=== PATIENT | female | born 1960 | race Caucasian/White ===

== ENCOUNTER 2017-06-11 13:14 | Inpatient (IN) ==
--- NOTE | 2017-06-11 13:35 | Emergency Department Note ---
Disposition Clinical Impression: Suicidal ideation Disposition: Admitted As Inpatient Condition: Good Referrals: NONE,PCP [Primary Care Provider] - Forms: ED Satisfaction Letter Psych HPI - General Chief Complaint: ED Psychiatric Symptoms Stated Complaint: SI Time Seen by Provider: 06/11/17 13:27 Source: patient Mode of arrival: ambulatory Limitations: no limitations Nursing Notes Reviewed: Yes Vital Signs Reviewed: Yes - History of Present Illness HPI Narrative: Patient presents to the ED with the chief complaint of suicidal ideation. Patient reports feelings of depression over the last year. No specific inciting incident. States she was sent here by her primary care physician today. She states it has been worse over the last 2 days. In about 48 hours ago. She actually tried to kill herself. She states that she has been thinking for a while about going into her garage, starting the car, and feeling herself from carbon monoxide poisoning. She states that she did this the day before yesterday, but she woke up in the morning and was still alive. She denies any ingestions. She states that she is still thinking about killing herself currently. Also complaining of weight gain over the last year and thinks she may have something wrong with her thyroid. She has COPD. No increased shortness of breath from baseline. No chest pain or fevers. No abdominal pain, nausea, vomiting or diarrhea. - Related Data Home Medications Medication Instructions Recorded Confirmed Hyoscyamine SL [Levsin SL] 0.125 mg SL QID PRN 06/11/17 06/11/17 Levothyroxine [Synthroid] 100 mcg PO DAILY 06/11/17 06/11/17 Allergies Allergy/AdvReac Type Severity Reaction Status Date / Time No Known Allergies Allergy Verified 06/11/17 14:04 Review of Systems: As reviewed in the HPI. All other systems reviewed are negative or normal. Past Medical History - Past Medical History Attestation: Yes The following information was validated with the patient. Source: patient Medical history: Reports: no medical history - Social History Smoking Status: Never smoker Physical Exam CONSTITUTIONAL: [well appearing in no acute distress] SKIN: [Warm, dry, and intact without rash] EYES: [extraocular movements are grossly intact, clear conjunctiva] HENT: [Normocephalic, atraumatic, moist mucus membranes] NECK: [no obvious swelling, normal range of motion] PULMONARY: [normal chest rise and fall, no respiratory distress or stridor CARDIOVASCULAR: [regular rate, distal extremities are warm and well perfused] GASTROINSTESTINAL: [nondistended, non-tender] GENITOURINARY: [deferred] NEUROLOGIC: [normal speech, moves all extremities] MUSCULOSKELETAL: [no gross deformities, atraumatic] PSYCHIATRIC: Flat affect, depressed, slightly withdrawn - General Limitations: no limitations General appearance: alert, in no apparent distress Course Course Narrative: Patient presenting with suicidal ideation and recent suicide attempt. I am concerned about the patient's lethality. Labs, EKG, chest x-ray, TSH. Patient will likely be admitted once Ia evaluates her. - Reevaluation(s) Reevaluation #1: 1A will admit Time: 19:58 Vital Signs Temperature 97.9 F 06/11/17 13:24 Pulse Rate 113 06/11/17 13:24 Respiratory Rate 18 06/11/17 13:24 Blood Pressure 162/78 06/11/17 13:24 O2 Sat by Pulse Oximetry 98 06/11/17 13:24 Temperature 97.9 F 06/11/17 13:24 Pulse Rate 113 06/11/17 13:24 Respiratory Rate 18 06/11/17 13:24 Blood Pressure 162/78 06/11/17 13:24 O2 Sat by Pulse Oximetry 98 06/11/17 13:24 Oxygen Delivery Oxygen Delivery Room Air Psych - Lab Data Result diagrams: 06/11/17 14:50 06/11/17 14:50 Lab Results 06/11/17 06/11/17 06/11/17 Range/Units 13:55 13:55 14:50 WBC 8.2 (4.3-11.1) K/mcL RBC 4.12 (3.82-4.97) M/mcL Hgb 14.0 (11.5-15.4) g/dL Hct 38.9 (35.3-44.9) % MCV 94.4 (83.0-100.0) fL MCH 34.0 H (28.0-33.3) pg MCHC 36.0 H (31.6-35.5) g/dL RDW 12.3 (11.5-14.5) % Plt Count 239 (140-400) K/mcL MPV 9.1 L (9.4-12.4) fL Immature Gran % 0.2 (0-4) % Seg Neutrophils % 70.9 % Lymphocytes % 21.7 % Monocytes % 5.9 % Eosinophils % 0.6 % Basophils % 0.7 % Neutrophils # 5.8 (1.6-8.9) K/mcL Lymphocytes # 1.8 (0.6-4.6) K/mcL Monocytes # 0.5 (0.0-1.3) K/mcL Eosinophils # 0.1 (0.0-0.6) K/mcL Basophils # 0.1 (0.0-0.2) K/mcL Sodium (136-145) mEq/L Potassium (3.5-5.1) mEq/L Chloride (98-107) mEq/L Carbon Dioxide (23-29) mEq/L BUN (6-20) mg/dL Creatinine (0.60-1.20) mg/dL Est GFR ( Amer) (> 60) Est GFR (Non-Af Amer) (> 60) BUN/Creatinine Ratio (6-26) Glucose (70-105) mg/dL Calculated Osmolality (280-300) Calcium (8.6-10.3) mg/dL TSH (0.340-5.600) mcIU/mL Urine Color Yellow (Yellow) Urine Clarity Cloudy A (Clear) Urine pH 5.5 (5.0-8.0) pH Units Ur Specific [place] 1.018 (1.010-1.025) Urine Protein Negative (Neg-Trace) mg/dL Urine Glucose (UA) Normal (Normal) mg/dL Urine Ketones Negative (Negative) mg/dL Urine Blood Negative (Negative) Urine Nitrite Negative (Negative) Urine Bilirubin Negative (Negative) Urine Urobilinogen Normal (Normal) mg/dL Ur Leukocyte Esterase Small H (Negative) Urine Microscopic RBC 0-3 (0-3) per hpf Urine Microscopic WBC 5-15 H (0-3) per hpf Ur Squamous Epith Cells Many H (None-Few) per lpf Urine Bacteria Few (None-Few) per hpf Hyaline Casts None Seen (None-Few) per lpf Salicylates (15.0-30.0) mg/dL Urine Opiates Screen Negative (Hsoues=749) ng/mL Acetaminophen (10-20) mcg/mL Ur Barbiturates Screen Negative (Zwamcv=638) ng/mL Ur Phencyclidine Scrn Negative (Cutoff=25) ng/mL Ur Amphetamines Screen Negative (Liursy=5771) ng/mL U Benzodiazepines Scrn Negative (Ntlers=763) ng/mL Urine Cocaine Screen Negative (Cutoff= 300) ng/mL U Marijuana (THC) Screen Negative (Cutoff = 50) ng/mL Ethyl Alcohol (Less than 10) mg/dL 06/11/17 Range/Units 14:50 WBC (4.3-11.1) K/mcL RBC (3.82-4.97) M/mcL Hgb (11.5-15.4) g/dL Hct (35.3-44.9) % MCV (83.0-100.0) fL MCH (28.0-33.3) pg MCHC (31.6-35.5) g/dL RDW (11.5-14.5) % Plt Count (140-400) K/mcL MPV (9.4-12.4) fL Immature Gran % (0-4) % Seg Neutrophils % % Lymphocytes % % Monocytes % % Eosinophils % % Basophils % % Neutrophils # (1.6-8.9) K/mcL Lymphocytes # (0.6-4.6) K/mcL Monocytes # (0.0-1.3) K/mcL Eosinophils # (0.0-0.6) K/mcL Basophils # (0.0-0.2) K/mcL Sodium 136 (136-145) mEq/L Potassium 4.6 (3.5-5.1) mEq/L Chloride 102 (98-107) mEq/L Carbon Dioxide 25 (23-29) mEq/L BUN 7 (6-20) mg/dL Creatinine 0.88 (0.60-1.20) mg/dL Est GFR ( Amer) > 60 (> 60) Est GFR (Non-Af Amer) > 60 (> 60) BUN/Creatinine Ratio 8 (6-26) Glucose 109 H (70-105) mg/dL Calculated Osmolality 281 (280-300) Calcium 9.6 (8.6-10.3) mg/dL TSH 6.908 H (0.340-5.600) mcIU/mL Urine Color (Yellow) Urine Clarity (Clear) Urine pH (5.0-8.0) pH Units Ur Specific [place] (1.010-1.025) Urine Protein (Neg-Trace) mg/dL Urine Glucose (UA) (Normal) mg/dL Urine Ketones (Negative) mg/dL Urine Blood (Negative) Urine Nitrite (Negative) Urine Bilirubin (Negative) Urine Urobilinogen (Normal) mg/dL Ur Leukocyte Esterase (Negative) Urine Microscopic RBC (0-3) per hpf Urine Microscopic WBC (0-3) per hpf Ur Squamous Epith Cells (None-Few) per lpf Urine Bacteria (None-Few) per hpf Hyaline Casts (None-Few) per lpf Salicylates < 2.5 L (15.0-30.0) mg/dL Urine Opiates Screen (Bzuwcw=523) ng/mL Acetaminophen < 10 L (10-20) mcg/mL Ur Barbiturates Screen (Fvnqrk=546) ng/mL Ur Phencyclidine Scrn (Cutoff=25) ng/mL Ur Amphetamines Screen (Xcvquo=7850) ng/mL U Benzodiazepines Scrn (Ejiqyi=479) ng/mL Urine Cocaine Screen (Cutoff= 300) ng/mL U Marijuana (THC) Screen (Cutoff = 50) ng/mL Ethyl Alcohol < 10 (Less than 10) mg/dL - EKG Data EKG attestation: Yes I reviewed and interpreted this EKG. EKG results narrative: Sinus rhythm, rate 93,. 1:30, QRS 76, QTC 412, normal axis, nonspecific ST depression in V4 and V5, no acute ischemic changes Psychiatric Medical Clearance - Medical Clearance Checklist Medical History: No Social History Section defined Current Vitals: Last Vital Signs Temp 97.9 F 06/11/17 13:24 Pulse 113 06/11/17 13:24 Resp 18 06/11/17 13:24 BP 162/78 06/11/17 13:24 Pulse Ox 98 06/11/17 13:24 Psychiatric Lab Panel: Drug Levels and Toxicity 06/11/17 06/11/17 13:55 14:50 Urine Opiates Screen Negative Acetaminophen < 10 L Ur Barbiturates Screen Negative Ur Phencyclidine Scrn Negative Ur Amphetamines Screen Negative U Benzodiazepines Scrn Negative Urine Cocaine Screen Negative U Marijuana (THC) Screen Negative Ethyl Alcohol < 10 Abnormal Labs: Abnormal lab results MCH 34.0 pg (28.0-33.3) H 06/11/17 14:50 MCHC 36.0 g/dL (31.6-35.5) H 06/11/17 14:50 MPV 9.1 fL (9.4-12.4) L 06/11/17 14:50 Glucose 109 mg/dL (70-105) H 06/11/17 14:50 TSH 6.908 mcIU/mL (0.340-5.600) H 06/11/17 14:50 Urine Clarity Cloudy (Clear) A 06/11/17 13:55 Ur Leukocyte Esterase Small (Negative) H 06/11/17 13:55 Urine Microscopic WBC 5-15 per hpf (0-3) H 06/11/17 13:55 Ur Squamous Epith Cells Many per lpf (None-Few) H 06/11/17 13:55 Salicylates < 2.5 mg/dL (15.0-30.0) L 06/11/17 14:50 Acetaminophen < 10 mcg/mL (10-20) L 06/11/17 14:50 Statement of Medical Clearance: I have evaluated the patient, reviewed diagnostic information, and certify that the patient's medical condition is sufficiently stable that transfer to the psychiatric unit does not pose a significant risk of deterioration. Attestation Statement - Attestation Attestation: I, Erasmo Cortez DO, examined this patient [id number] and my medical decision-making was reviewed with Dr. Luisito Rosas, Resident Physician. I agree with the documented findings, disposition and treatment plan as described except to the extent set forth below. Please see my progress notes for details.
[2017-06-11 14:03] LABS: Bilirubin,Urine Negative (Negative); Blood,Urine Negative (Negative); Clarity,Urine Cloudy (Clear); Color,Urine Yellow (Yellow); Glucose,Urine (UA) Normal (Normal); Ketones,Urine Negative (Negative); Leukocyte Esterase,Urine Small (Negative); Nitrite,Urine Negative (Negative); PH,Urine 5.5 pH Units (5.0-8.0); Protein,Urine Negative (Neg-Trace); Specific Gravity,Urine 1.018 (1.010-1.025); Urobilinogen,Urine Normal (Normal)
--- NOTE | 2017-06-11 14:03 | Emergency Department Note ---
Disposition Clinical Impression: Suicidal ideation Disposition: Admitted As Inpatient Condition: Good Referrals: NONE,PCP [Primary Care Provider] - Forms: ED Satisfaction Letter Time of Disposition: 20:00 General Adult HPI - General Chief complaint: ED Psychiatric Symptoms Stated complaint: SI Time Seen by Provider: 06/11/17 13:27 Source: patient Mode of arrival: ambulatory Limitations: no limitations - History of Present Illness Pain Scale: 0 - Related Data Home Medications Medication Instructions Recorded Confirmed Hyoscyamine SL [Levsin SL] 0.125 mg SL QID PRN 06/11/17 06/11/17 Levothyroxine [Synthroid] 100 mcg PO DAILY 06/11/17 06/11/17 Allergies Allergy/AdvReac Type Severity Reaction Status Date / Time No Known Allergies Allergy Verified 06/11/17 14:04 Past Medical History - Past Medical History Medical history: Reports: no medical history - Social History Smoking Status: Never smoker Physical Exam - General Limitations: no limitations General appearance: alert, in no apparent distress Course Vital Signs Temperature 97.9 F 06/11/17 13:24 Pulse Rate 113 06/11/17 13:24 Respiratory Rate 18 06/11/17 13:24 Blood Pressure 162/78 06/11/17 13:24 O2 Sat by Pulse Oximetry 98 06/11/17 13:24 Temperature 97.9 F 06/11/17 13:24 Pulse Rate 113 06/11/17 13:24 Respiratory Rate 18 06/11/17 13:24 Blood Pressure 162/78 06/11/17 13:24 O2 Sat by Pulse Oximetry 98 06/11/17 13:24 Oxygen Delivery Oxygen Delivery Room Air Medical Decision Making - Lab Data Result diagrams: 06/11/17 14:50 06/11/17 14:50 Lab Results 06/11/17 06/11/17 06/11/17 Range/Units 13:55 13:55 14:50 WBC 8.2 (4.3-11.1) K/mcL RBC 4.12 (3.82-4.97) M/mcL Hgb 14.0 (11.5-15.4) g/dL Hct 38.9 (35.3-44.9) % MCV 94.4 (83.0-100.0) fL MCH 34.0 H (28.0-33.3) pg MCHC 36.0 H (31.6-35.5) g/dL RDW 12.3 (11.5-14.5) % Plt Count 239 (140-400) K/mcL MPV 9.1 L (9.4-12.4) fL Immature Gran % 0.2 (0-4) % Seg Neutrophils % 70.9 % Lymphocytes % 21.7 % Monocytes % 5.9 % Eosinophils % 0.6 % Basophils % 0.7 % Neutrophils # 5.8 (1.6-8.9) K/mcL Lymphocytes # 1.8 (0.6-4.6) K/mcL Monocytes # 0.5 (0.0-1.3) K/mcL Eosinophils # 0.1 (0.0-0.6) K/mcL Basophils # 0.1 (0.0-0.2) K/mcL Sodium (136-145) mEq/L Potassium (3.5-5.1) mEq/L Chloride (98-107) mEq/L Carbon Dioxide (23-29) mEq/L BUN (6-20) mg/dL Creatinine (0.60-1.20) mg/dL Est GFR ( Amer) (> 60) Est GFR (Non-Af Amer) (> 60) BUN/Creatinine Ratio (6-26) Glucose (70-105) mg/dL Calculated Osmolality (280-300) Calcium (8.6-10.3) mg/dL TSH (0.340-5.600) mcIU/mL Urine Color Yellow (Yellow) Urine Clarity Cloudy A (Clear) Urine pH 5.5 (5.0-8.0) pH Units Ur Specific [place] 1.018 (1.010-1.025) Urine Protein Negative (Neg-Trace) mg/dL Urine Glucose (UA) Normal (Normal) mg/dL Urine Ketones Negative (Negative) mg/dL Urine Blood Negative (Negative) Urine Nitrite Negative (Negative) Urine Bilirubin Negative (Negative) Urine Urobilinogen Normal (Normal) mg/dL Ur Leukocyte Esterase Small H (Negative) Urine Microscopic RBC 0-3 (0-3) per hpf Urine Microscopic WBC 5-15 H (0-3) per hpf Ur Squamous Epith Cells Many H (None-Few) per lpf Urine Bacteria Few (None-Few) per hpf Hyaline Casts None Seen (None-Few) per lpf Salicylates (15.0-30.0) mg/dL Urine Opiates Screen Negative (Mjedek=913) ng/mL Acetaminophen (10-20) mcg/mL Ur Barbiturates Screen Negative (Xzaxxk=338) ng/mL Ur Phencyclidine Scrn Negative (Cutoff=25) ng/mL Ur Amphetamines Screen Negative (Tgrqwv=9694) ng/mL U Benzodiazepines Scrn Negative (Dpzler=147) ng/mL Urine Cocaine Screen Negative (Cutoff= 300) ng/mL U Marijuana (THC) Screen Negative (Cutoff = 50) ng/mL Ethyl Alcohol (Less than 10) mg/dL 06/11/17 Range/Units 14:50 WBC (4.3-11.1) K/mcL RBC (3.82-4.97) M/mcL Hgb (11.5-15.4) g/dL Hct (35.3-44.9) % MCV (83.0-100.0) fL MCH (28.0-33.3) pg MCHC (31.6-35.5) g/dL RDW (11.5-14.5) % Plt Count (140-400) K/mcL MPV (9.4-12.4) fL Immature Gran % (0-4) % Seg Neutrophils % % Lymphocytes % % Monocytes % % Eosinophils % % Basophils % % Neutrophils # (1.6-8.9) K/mcL Lymphocytes # (0.6-4.6) K/mcL Monocytes # (0.0-1.3) K/mcL Eosinophils # (0.0-0.6) K/mcL Basophils # (0.0-0.2) K/mcL Sodium 136 (136-145) mEq/L Potassium 4.6 (3.5-5.1) mEq/L Chloride 102 (98-107) mEq/L Carbon Dioxide 25 (23-29) mEq/L BUN 7 (6-20) mg/dL Creatinine 0.88 (0.60-1.20) mg/dL Est GFR ( Amer) > 60 (> 60) Est GFR (Non-Af Amer) > 60 (> 60) BUN/Creatinine Ratio 8 (6-26) Glucose 109 H (70-105) mg/dL Calculated Osmolality 281 (280-300) Calcium 9.6 (8.6-10.3) mg/dL TSH 6.908 H (0.340-5.600) mcIU/mL Urine Color (Yellow) Urine Clarity (Clear) Urine pH (5.0-8.0) pH Units Ur Specific [place] (1.010-1.025) Urine Protein (Neg-Trace) mg/dL Urine Glucose (UA) (Normal) mg/dL Urine Ketones (Negative) mg/dL Urine Blood (Negative) Urine Nitrite (Negative) Urine Bilirubin (Negative) Urine Urobilinogen (Normal) mg/dL Ur Leukocyte Esterase (Negative) Urine Microscopic RBC (0-3) per hpf Urine Microscopic WBC (0-3) per hpf Ur Squamous Epith Cells (None-Few) per lpf Urine Bacteria (None-Few) per hpf Hyaline Casts (None-Few) per lpf Salicylates < 2.5 L (15.0-30.0) mg/dL Urine Opiates Screen (Nkcyph=442) ng/mL Acetaminophen < 10 L (10-20) mcg/mL Ur Barbiturates Screen (Bcehcu=570) ng/mL Ur Phencyclidine Scrn (Cutoff=25) ng/mL Ur Amphetamines Screen (Kuncrt=1739) ng/mL U Benzodiazepines Scrn (Rwxnmw=057) ng/mL Urine Cocaine Screen (Cutoff= 300) ng/mL U Marijuana (THC) Screen (Cutoff = 50) ng/mL Ethyl Alcohol < 10 (Less than 10) mg/dL Attestation Statement - Attestation Attestation: I, Erasmo Cortez DO, examined this patient [id number] and my medical decision-making was reviewed with Dr. Luisito Rosas, Resident Physician. I agree with the documented findings, disposition and treatment plan as described except to the extent set forth below. Please see my progress notes for details. 57-year-old female presents emergency room for evaluation for suicidal ideation. Patient locked herself in a garage yesterday and had a car running. Patient family found her and removed from the car. Patient was brought in today for medical clearance. In today for medical clearance and evaluation. She actively denies any suicidal thoughts at this time but has actively had attempts here within the last 24 hours. Vital signs are reviewed and are stable. Patient does not appear to be in distress. Physical exam is unremarkable. Medical screening evaluation will be completed and disposition to be determined. See detailed documentation of the physical exam, medical intervention, medical decision-making and disposition in the resident physician' s note. Lungs are clear to auscultation heart is regular. Patient has no visible signs of trauma or injury. Patient is alert she is oriented and she answers questions appropriately this point. Patient understands the projected course of care has no other questions or issues this time. 1999 Patient was accepted to the psychiatric meza here at this facility for further evaluation and management. Thinks that the side of the request for safety the patient. Patient will be admitted at this time.
[2017-06-11 14:05] LABS: Bacteria,Urine Few per hpf (None-Few); Hyaline Casts,Urine None Seen per lpf (None-Few); RBC,Urine 0-3 per hpf (0-3); Squamous Epithelial Cell,Urine Many per lpf (None-Few)
[2017-06-11 15:04] LABS: Basophils # 0.1 K/mcL (0.0-0.2); Basophils % 0.7 %; Eosinophils # 0.1 K/mcL (0.0-0.6); Eosinophils % 0.6 %; Hematocrit 38.9 % (35.3-44.9); Immature Granulocytes % 0.2 % (0-4); Lymphocytes # 1.8 K/mcL (0.6-4.6); Lymphocytes % 21.7 %; Mean Corpuscular Volume 94.4 fL (83.0-100.0); Mean Platelet Volume 9.1 fL (9.4-12.4); Monocytes # 0.5 K/mcL (0.0-1.3); Monocytes % 5.9 %; Neutrophils # 5.8 K/mcL (1.6-8.9); Platelet Count 239 K/mcL (140-400); Red Blood Count 4.12 M/mcL (3.82-4.97); Red Cell Distribution Width 12.3 % (11.5-14.5); Segmented Neutrophils % 70.9 %
[2017-06-11 15:16] LABS: Amphetamine Screen,Urine Negative ng/mL (Cutoff=1000); Barbiturate Screen,Urine Negative ng/mL (Cutoff=200); Benzodiazepines Screen,Urine Negative ng/mL (Cutoff=200); Cannabinoid Screen,Urine Negative ng/mL (Cutoff = 50); Cocaine Screen,Urine Negative ng/mL (Cutoff= 300); Opiate Screen,Urine Negative ng/mL (Cutoff=300); Phencyclidine Screen,Urine Negative ng/mL (Cutoff=25)
[2017-06-11 15:30] LABS: Acetaminophen < 10 mcg/mL (10-20); BUN/Creatinine Ratio 8 (6-26); Blood Urea Nitrogen 7 mg/dL (6-20); Calcium 9.6 mg/dL (8.6-10.3); Carbon Dioxide 25 mEq/L (23-29); Chloride 102 mEq/L (98-107); Ethanol < 10 mg/dL (Less than 10); Glucose 109 mg/dL (70-105); Osmolality,Calculated 281 (280-300); Potassium 4.6 mEq/L (3.5-5.1); Salicylate < 2.5 mg/dL (15.0-30.0); Sodium 136 mEq/L (136-145); eGFR For African Americans > 60 (> 60); eGFR For Non-African Americans > 60 (> 60)
[2017-06-11 15:39] LABS: Thyroid Stimulating Hormone 6.908 mcIU/mL (0.340-5.600)
[2017-06-11] MEDS ORDERED: MOM Conc 10 ML UD.LIQ PO PRN (20:09)
[2017-06-11] MEDS ORDERED: *HR* LORazepam 1 MG TABLET PO PRN (20:09)
[2017-06-11] MEDS ORDERED: Mag Hydrox/Al Hydrox/Simeth 30 ML UDC PO PRN (20:09)
[2017-06-11] MEDS ORDERED: *HR* LORazepam 2 MG/ML VIAL IM PRN (20:09)
[2017-06-11] MEDS ORDERED: Acetaminophen 325 MG TABLET PO PRN (20:09)
[2017-06-11] MEDS ORDERED: hydrOXYzine pamoate 25 MG CAPSULE PO PRN (20:09)
[2017-06-11] MEDS ORDERED: Haloperidol Lactate 5 MG/ML VIAL IM PRN (20:09)
[2017-06-11] MEDS ORDERED: traZODone 50 MG TABLET PO PRN (20:09)
--- NOTE | 2017-06-12 08:58 | Psychiatry History & Physical ---
Date of Encounter: 06/12/17 Time of Encounter: 10:10 History of Present Illness Patient Stated Chief Complaint: "I was feeling depressed." Medicare Admission Attestation: For traditional Medicare patients the provided hospital inpatient services are reasonable and necessary and in the case of services not specified as inpatient -only under 42 CFR 419.22 (n), that they are appropriately provided as inpatient services in accordance 42 CFR 412.3. For Critical Access Hospital the patient may reasonably be expected to be discharged or transferred to a hospital within 96 hours after admission to the Critical Access Hospital. Admitted From: Emergency Dept Plans for Post Hospital Care: Home History of Present Illness: Ms. Zelaya is a 57 year old female with a history of depression who presented to the hospital at the referral from her primary care doctor after telling PCP that she attempted suicide via carbon monoxide poisoning. Patient was transported to the hospital with her neighbor. Neighbor apparently told staff that patient did attempt suicide but patient was minimizing this. She eventually admitted to sitting in her car with it on but stated that she was not there for very long. She does admit to feeling suicidal at times over the past few months. She reports that she was very depressed because it was her birthday. "I just got [id number] and I did not really think there was anything to live for." Patient states that she has tried Prozac before in the past for depression but it made her feel disconnected from her body. She states that often times she feels depressed in the morning and then goes to work and is able to feel better because she is distracting herself. She admits to being very socially isolated. She has little connection with her 2 sons who are their 30s. She she does report really supported by her neighbor. Patient denies suicidal ideation now but remains depressed. She reports difficulty motivating and low energy. She denies issues with sleep. She denies a history of auditory or visual hallucinations. She denies obsessions, delusions, paranoia. She denies grandiosity, decreased need for sleep or impulsivity. Patient is willing to try meds or other treatment to help with her depression. Patient reports that she has noted some mild weight gain along with fatigue and her TSH was elevated at 6.9 on admission to the hospital. Past Med Surg Social Fam HX - Past Medical History Medical history: no medical history - Past Psychiatric History Psychiatric history: Reports: depression. Denies: prior suicide attempt, previous psychiatric hospitalization Past psychiatric history details: No outpatient psychiatric treatment. Has tried Prozac but no other meds. Family psychiatric history: No Family History of Suicide: None - Past Surgical History Surgical History: no surgical history - Social History Smoking Status: Never smoker Smokeless Tobacco Status: No Alcohol use: occasionally Drug use: none Occupational status: employed Current living situation: Home Activity Level: Independent ambulation - Family History Father Hx Family Cancer: Yes (colon) Medications & Allergies Hyoscyamine SL [Levsin SL] 0.125 mg SL QID PRN 06/11/17 [History] Levothyroxine [Synthroid] 100 mcg PO DAILY 06/11/17 [History] 3 Allergy/AdvReac Type Severity Reaction Status Date / Time No Known Allergies Allergy Verified 06/11/17 14:04 Review of Systems Constitutional: Reports: other (Fatigue) Eyes: Denies: eye pain, vision change Ears, Nose, Throat: Denies: ear pain, throat pain, dental pain, hearing loss, congestion Cardiovascular: Denies: chest pain, palpitations, dyspnea on exertion Respiratory: Denies: cough, dyspnea, wheezes Gastrointestinal: Denies: abdominal pain, nausea, vomiting, diarrhea, constipation Genitourinary female: Denies: urgency, dysuria, frequency, abnormal menses, dyspareunia Musculoskeletal: Denies: joint swelling, joint pain Integumentary: Denies: rash, lesions, pruritus Neurological: Denies: headache, weakness, numbness, memory loss Psychiatric: Reports: depression, anxiety, difficulty concentrating, irritability Endocrine: Denies: fatigue, heat or cold intolerance Hematologic/Lymphatic: Denies: easy bruising, lymphadenopathy Allergic/Immunologic: Denies: urticaria, itchy eyes Exam - HEENT Head exam IM: Present: atraumatic Eye exam IM: Present: EOMI, normal appearance, PERRL ENT exam IM: Present: normal exam - Neurological Neurological exam: Present: CN II-XII intact - Respiratory Respiratory exam IM: Present: CTAB - GI/Abdominal GI/Abdominal exam IM: Present: normal bowel sounds, soft. Absent: tenderness - Extremities Extremities exam IM: Present: full ROM - Skin Skin exam IM: Present: dry, warm - Constitutional Vitals: Temp Pulse Resp BP Pulse Ox 98.5 F 84 18 152/79 98 06/11/17 21:00 06/11/17 21:00 06/11/17 21:00 06/11/17 21:00 06/11/17 13:24 General appearance: age & developmentally appropriate, well-groomed, well- nourished - Musculoskeletal Gait: normal Station: relaxed Strength & Tone: normal for patient - Psychiatric Patient Orientation: Yes Person, Yes Time, Yes Place Level of alertness: Alert Behavior: calm, guarded Psychomotor activity: Normal Eye Contact: Minimal Contact Mood Description: Depressed Affect description: congruent with mood, dysphoric Speech Volume: Normal Speech pattern: normal rate, normal rhythm, normal tone, fluent, spontaneous Language & Vocabulary: consistent with education Thought Process: Linear, Goal Oriented Thought Content: No Suicidal ideation, No Homicidal ideation, No Overt delusions Perceptual Disturbances: No Auditory hallucinations, No Visual hallucinations Attention Span Ability: Capable of Focused Attention Memory Description: Grossly Intact Patient Reliability: Questionable Historian Fund of knowledge: Yes abstraction ability, Yes average, Yes aware of current events Intelligence Estimate: Average Judgment: Limited Insight: Partial Results - Labs Labs: Laboratory Last Values WBC 8.2 K/mcL (4.3-11.1) 06/11/17 14:50 RBC 4.12 M/mcL (3.82-4.97) 06/11/17 14:50 Hgb 14.0 g/dL (11.5-15.4) 06/11/17 14:50 Hct 38.9 % (35.3-44.9) 06/11/17 14:50 MCV 94.4 fL (83.0-100.0) 06/11/17 14:50 MCH 34.0 pg (28.0-33.3) H 06/11/17 14:50 MCHC 36.0 g/dL (31.6-35.5) H 06/11/17 14:50 RDW 12.3 % (11.5-14.5) 06/11/17 14:50 Plt Count 239 K/mcL (140-400) 06/11/17 14:50 MPV 9.1 fL (9.4-12.4) L 06/11/17 14:50 Immature Gran % 0.2 % (0-4) 06/11/17 14:50 Seg Neutrophils % 70.9 % 06/11/17 14:50 Lymphocytes % 21.7 % 06/11/17 14:50 Monocytes % 5.9 % 06/11/17 14:50 Eosinophils % 0.6 % 06/11/17 14:50 Basophils % 0.7 % 06/11/17 14:50 Neutrophils # 5.8 K/mcL (1.6-8.9) 06/11/17 14:50 Lymphocytes # 1.8 K/mcL (0.6-4.6) 06/11/17 14:50 Monocytes # 0.5 K/mcL (0.0-1.3) 06/11/17 14:50 Eosinophils # 0.1 K/mcL (0.0-0.6) 06/11/17 14:50 Basophils # 0.1 K/mcL (0.0-0.2) 06/11/17 14:50 Sodium 136 mEq/L (136-145) 06/11/17 14:50 Potassium 4.6 mEq/L (3.5-5.1) 06/11/17 14:50 Chloride 102 mEq/L (98-107) 06/11/17 14:50 Carbon Dioxide 25 mEq/L (23-29) 06/11/17 14:50 BUN 7 mg/dL (6-20) 06/11/17 14:50 Creatinine 0.88 mg/dL (0.60-1.20) 06/11/17 14:50 Est GFR ( Amer) > 60 (> 60) 06/11/17 14:50 Est GFR (Non-Af Amer) > 60 (> 60) 06/11/17 14:50 BUN/Creatinine Ratio 8 (6-26) 06/11/17 14:50 Glucose 109 mg/dL (70-105) H 06/11/17 14:50 Calculated Osmolality 281 (280-300) 06/11/17 14:50 Calcium 9.6 mg/dL (8.6-10.3) 06/11/17 14:50 TSH 6.908 mcIU/mL (0.340-5.600) H 06/11/17 14:50 Urine Color Yellow (Yellow) 06/11/17 13:55 Urine Clarity Cloudy (Clear) A 06/11/17 13:55 Urine pH 5.5 pH Units (5.0-8.0) 06/11/17 13:55 Ur Specific [place] 1.018 (1.010-1.025) 06/11/17 13:55 Urine Protein Negative mg/dL (Neg-Trace) 06/11/17 13:55 Urine Glucose (UA) Normal mg/dL (Normal) 06/11/17 13:55 Urine Ketones Negative mg/dL (Negative) 06/11/17 13:55 Urine Blood Negative (Negative) 06/11/17 13:55 Urine Nitrite Negative (Negative) 06/11/17 13:55 Urine Bilirubin Negative (Negative) 06/11/17 13:55 Urine Urobilinogen Normal mg/dL (Normal) 06/11/17 13:55 Ur Leukocyte Esterase Small (Negative) H 06/11/17 13:55 Urine Microscopic RBC 0-3 per hpf (0-3) 06/11/17 13:55 Urine Microscopic WBC 5-15 per hpf (0-3) H 06/11/17 13:55 Ur Squamous Epith Cells Many per lpf (None-Few) H 06/11/17 13:55 Urine Bacteria Few per hpf (None-Few) 06/11/17 13:55 Hyaline Casts None Seen per lpf (None-Few) 06/11/17 13:55 Salicylates < 2.5 mg/dL (15.0-30.0) L 06/11/17 14:50 Urine Opiates Screen Negative ng/mL (Yajwbg=671) 06/11/17 13:55 Acetaminophen < 10 mcg/mL (10-20) L 06/11/17 14:50 Ur Barbiturates Screen Negative ng/mL (Adnjhh=099) 06/11/17 13:55 Ur Phencyclidine Scrn Negative ng/mL (Cutoff=25) 06/11/17 13:55 Ur Amphetamines Screen Negative ng/mL (Jarhfr=3045) 06/11/17 13:55 U Benzodiazepines Scrn Negative ng/mL (Tczgax=267) 06/11/17 13:55 Urine Cocaine Screen Negative ng/mL (Cutoff= 300) 06/11/17 13:55 U Marijuana (THC) Screen Negative ng/mL (Cutoff = 50) 06/11/17 13:55 Ethyl Alcohol < 10 mg/dL (Less than 10) 06/11/17 14:50 Assessment and Plan (1) Major depressive disorder, recurrent severe without psychotic features Current visit: Yes Status: Acute Plan: Admit inpatient for safety and stabilization, Close observation, Suicide Precautions per unit protocol, Encourage participation in unit milieu, Group Therapy, Monitor sleep, Monitor appetite Additional Plan: Discussed treatment options with patient. We will encourage her to discuss her feelings and her depression in group treatment. Outpatient counseling will be recommended on discharge. Start low dose of Wellbutrin and increase as tolerated. Monitor sleep and appetite. Risks, benefits, side effects, alternatives discussed w/pt: Yes Patient agreeable to treatment: Yes Plans for Post Hospital Care: Home Estimated Length of Stay (Days): 3 (2) Hypothyroidism Current visit: Yes Status: Acute Plan: Close observation Additional Plan: Increase Synthroid to 125 g daily. Plans for Post Hospital Care: Home Qualifiers: Hypothyroidism type: acquired Qualified Code(s): E03.9 - Hypothyroidism, unspecified
[2017-06-12] MEDS ORDERED: BuPROPion SR (12 HR) 100 MG TABLET PO STA (13:36)
--- NOTE | 2017-06-12 16:12 | Electrocardiograph Report ---
[address] [address] Test Date: 2017-06-11 Pat Name: Silvana Zelaya Department: 102 Room: 1A21 Gender: F Pot Maker: Michelle : 1960 Requested By: [id number] Order Number: [id number] Reading MD: Fauzia Devi Measurements Intervals [place] Rate: 93 P: 70 ME: 130 QRS: 35 QRSD: 76 T: 54 QT: 361 QTc: 412 Interpretive Statements SINUS RHYTHM Electronically Signed On 06-12-2017 16:10:35 EDT by Fauzia Devi
[2017-06-13] MEDS ORDERED: BuPROPion SR (12 HR) 100 MG TABLET PO SCH (09:00)
[2017-06-13 09:58] VITALS: BP 132/81
--- NOTE | 2017-06-13 10:43 | Discharge Summary ---
Date of Encounter: 06/13/17 Time of Encounter: 09:50 Diagnosis - Discharge Diagnosis (1) Major depressive disorder, recurrent severe without psychotic features Priority: Primary Status: Acute (2) Hypothyroidism Priority: Secondary Status: Acute Qualifiers: Hypothyroidism type: acquired Qualified Code(s): E03.9 - Hypothyroidism, unspecified Medications - Discharge Medications Prescriptions: BuPROPion SR (12 HR) [Wellbutrin SR] 100 mg PO DAILY #30 tablet.er Levothyroxine [Synthroid] 125 mcg PO 0630 #30 tablet Hyoscyamine SL [Levsin Sl] 0.125 mg SL QID PRN 06/11/17 [History] BuPROPion SR (12 HR) [Wellbutrin SR] 100 mg PO DAILY #30 tablet.er 06/13/17 [Rx] Levothyroxine [Synthroid] 125 mcg PO 0630 #30 tablet 06/13/17 [Rx] 3 Allergy/AdvReac Type Severity Reaction Status Date / Time No Known Allergies Allergy Verified 06/11/17 14:04 Provider Date of admission: 06/11/17 19:59 Primary care physician: PCP NONE Discharging clinician: Cristiane Moore Psychiatry Exam - Constitutional Vitals: Temp Pulse Resp BP Pulse Ox 98.2 F 85 16 132/81 98 06/13/17 09:00 06/13/17 09:00 06/13/17 09:00 06/13/17 09:00 06/11/17 13:24 General appearance: age & developmentally appropriate, well-groomed, well- nourished - Musculoskeletal Gait: normal Station: relaxed Strength & Tone: normal for patient - Psychiatric Patient Orientation: Yes Person, Yes Time, Yes Place Level of alertness: Alert Behavior: calm, cooperative Psychomotor activity: Normal Eye Contact: Maintains Eye Contact Mood Description: Euthymic/stable Affect description: congruent with mood, full range Speech Volume: Normal Speech pattern: normal rate, normal rhythm, normal tone, fluent, spontaneous Language & Vocabulary: consistent with education Thought Process: Linear, Goal Oriented Thought Content: No Suicidal ideation, No Homicidal ideation, No Overt delusions Perceptual Disturbances: No Auditory hallucinations, No Visual hallucinations Attention Span Ability: Capable of Focused Attention Memory Description: Grossly Intact Patient Reliability: Reliable Historian Fund of knowledge: Yes abstraction ability, Yes aware of current events Intelligence Estimate: Average Judgment: Limited Insight: Partial Hospital Course Hospital course: Ms. Zelaya is a 57 year old female with a history of depression and anxiety as well as hypothyroidism who presented to the hospital with increasing depression and recent suicide attempt. Patient reported increasing depression that led to her attempting carbon monoxide poisoning. She woke up and did not go through with the attempt but she did tell a neighbor and neighbor took her to the hospital at the request of her primary care provider. Patient was admitted to for psychiatric stabilization. Patient was incorporated into the therapeutic groups and individual as well as recreational therapy. She was also offered psychoeducational materials and supportive therapy. She was placed on suicide precautions and close observation per unit protocol. Patient was willing to try a low dose of Wellbutrin to help with mood. She had tried Prozac in the past without good success. Patient tolerated medication well and denied side effects. Patient's Synthroid was also increased as her TSH was found to be elevated at 6.9. She was cooperative with peers and staff. She was agreeable to continue medication as prescribed and seeing a therapist on an outpatient basis. At the time of discharge she denied suicidal or homicidal ideation, intent, or plan. She is discharged in stable condition. - Time Spent with Patient Total time spent providing and/or coordinating discharge services: Less than 30 minutes Assessment and Plan - Patient/Caregiver Discharge Instructions Activity: resume usual activities as tolerated Diet: regular diet - Follow up Plan Follow up with: [facility] [Outside] - 06/29/17 2:00 pm (The above appointment is with Clemencia for mental health counseling services. Please arrive 30 minutes early to this appointment to complete paperwork. You will also see Quique for psychiatric assessment and medication management services on 2017 at 2:00pm. Please bring your insurance card and photo ID. If you are unable to keep this appointment, 24 hour business notice of cancellation is expected. The above appointment(s) reflects first availability. You may contact the office regularly to check for cancellations that may allow you to be seen sooner. ) Aline Carlos DO [Non-Partnered Physician] - 06/15/17 2:00 pm (The above appointment is with Dr. Carlos for [facility] and medication management services.) Functional capacity at discharge: independent ambulation Overall status at discharge: Stable Disposition: Home, Self-Care Quality - Multiple Antipsychotics Patient discharged on 2 or more antipsychotic medications: No Procedures - Procedures Procedures: Medication Management, Crisis Stabilization, Supportive Therapy, Group Therapy, Psychoeducational Therapy
== END 2017-06-13 11:50 | disposition home or self-care (01) | DRG 918 ==
LOC: EMEROO 13:14 → 1ANU 19:59
PROVIDERS: ADMIT Student in an Organized Health Care Education/Training Program; ATTEND Student in an Organized Health Care Education/Training Program